=== PATIENT | male | born 1990 | race Caucasian/White ===

== ENCOUNTER 2019-06-11 12:16 | Emergency (ER) | payer SELFPAY ==
[~2019-06-11] VITALS: Ht 180.3 cm; Wt 90.9 kg
--- NOTE | 2019-06-11 14:19 | NUR ---
Pt has no change in condition. Pt is awaiting provider evaluation.
--- NOTE | 2019-06-11 15:06 | NUR ---
Dr. Kidd is with the patient at this time.
--- NOTE | 2019-06-11 15:18 | NUR ---
Pt is awaiting labs and x-rays. Pt informed by the provider of the plan of care.
--- NOTE | 2019-06-11 15:29 | NUR ---
Pt taken to x-ray via w/c.
--- NOTE | 2019-06-11 15:35 | NUR ---
Return from x-ray via w/c.
[2019-06-11 15:37] LABS: BASOPHILS # (AUTO) 0.1 X10'3 (0-0.2); BASOPHILS % (AUTO) 0.6 % (0-1); EOSINOPHILS # (AUTO) 0.3 X10'3 (0-0.9); EOSINOPHILS % (AUTO) 2.8 % (0-6); HEMATOCRIT 46.7 % (42.0-52.0); HEMOGLOBIN 16.4 g/dl (14.0-17.9); LYMPHOCYTES # (AUTO) 2.7 X10'3 (1.1-4.8); LYMPHOCYTES % (AUTO) 29.8 % (21-51); MEAN CORPUSCULAR HEMOGLOBIN 30.9 PG (27.0-31.0); MEAN CORPUSCULAR VOLUME 88.2 FL (78-98); MEAN PLATELET VOLUME 7.7 FL (7.4-10.4); MONOCYTES # (AUTO) 0.6 X10'3 (0-0.9); MONOCYTES % (AUTO) 6.4 % (2-12); NEUTROPHILS # (AUTO) 5.6 X10'3 (1.8-7.7); NEUTROPHILS % (AUTO) 60.4 % (42-75); PLATELET COUNT 271 X10'3 (140-440); RED BLOOD COUNT 5.29 X10'6 (4.70-6.10); RED CELL DISTRIBUTION WIDTH 13.7 % (11.5-14.5); WHITE BLOOD COUNT 9.2 X10'3 (4.5-11.0)
[2019-06-11 15:50] LABS: ALBUMIN 4.3 G/DL (3.4-5.0); ANION GAP 7 (8-16); BLOOD UREA NITROGEN 9 MG/DL (7-18); CALCIUM 9.3 MG/DL (8.5-10.1); CHLORIDE 103 MMOL/L (99-107); GLUCOSE 87 MG/DL (70-104); POTASSIUM 4.3 MMOL/L (3.5-5.1); SODIUM 140 MMOL/L (135-145); TOTAL CARBON DIOXIDE 30.1 MMOL/L (24-32); eGFR > 90 ML/MIN
[2019-06-11 15:51] LABS: C-REACTIVE PROTEIN 0.05 MG/DL (0.0-0.5)
[2019-06-11] MEDS ORDERED: ketorolac trometh inj. 60 MG/2 ML VIAL IM ONE (16:05)
[2019-06-11 16:29] VITALS: BP 141/98
== END 2019-06-11 16:32 | disposition home or self-care (01) ==
LOC: ER 12:17
DX: M53.3 Sacrococcygeal disorders, not elsewhere classified (principal); M25.552 Pain in left hip; G89.29 Other chronic pain; F10.99 Alcohol use, unspecified with unspecified alcohol-induced disorder; Y90.9 Presence of alcohol in blood, level not specified
CPT/HCPCS: 36415; 73502; 80048; 85025; 86140; 96372; 99284; J1885